=== PATIENT | male | born 1955 | race Caucasian/White ===

== ENCOUNTER → 2020-07-06 | Outpatient (CLI) | payer MEDICARE ==
[2020-07-07 01:19] LABS: Hemoglobin A1C 6.3 % (4.0-6.0)
[2020-07-07 04:52] LABS: C Reactive Protein <0.4 mg/dL (0.0-0.8); Creatine Kinase 81 U/L (35-257)
[2020-07-07 06:44] LABS: Protein, Total 6.6 g/dL (6.2-8.2)
[2020-07-07 13:27] LABS: Albumin 4.17 g/dL (3.80-4.90); Gamma Globulin 0.84 g/dL (0.70-1.50)
== END | disposition home or self-care (01) ==
LOC: LABWHC1 14:40
PROVIDERS: ATTEND Psychiatry & Neurology Neurology
DX: G62.9 Polyneuropathy, unspecified (principal); R26.81 Unsteadiness on feet; G25.0 Essential tremor; I10 Essential (primary) hypertension; G60.9 Hereditary and idiopathic neuropathy, unspecified
CPT/HCPCS: 36415; 82550; 82607; 82747; 83036; 84165; 84439; 84443; 85652; 86038; 86140; 86618

== ENCOUNTER 2020-11-28 09:25 | Emergency (ER) | payer MEDICARE ==
[2020-11-28 09:31] VITALS: PULSE 59; RESP 18
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
[2020-11-28 10:04] LABS: Basophils # (A) 0.1 k/uL (0-0.2); Basophils % (A) 0 %; Eosinophils # (A) 0.2 k/uL (0-0.7); Eosinophils % (A) 2 %; HCT 42.7 % (39.0-53.0); HGB 14.5 gm/dL (13.0-17.5); Lymphocytes # (A) 1.4 k/uL (1.0-4.8); Lymphocytes % (A) 11 %; MCV 94.2 fL (80.0-100.0); Mean Platelet Volume 7.6; Monocytes % (A) 8 %; Neutrophils # (A) 9.9 k/uL (1.3-7.7); Neutrophils % (A) 78 %; Platelet Count 271 k/uL (150-450); RBC 4.53 m/uL (4.30-5.90); RDW 12.3 % (11.5-15.5); WBC 12.7 k/uL (3.8-10.6)
--- NOTE | 2020-11-28 10:21 | XR ---
EXAMINATION TYPE: XR knee complete RT DATE OF EXAM: 11/28/2020 CLINICAL HISTORY: Pain swelling and fever after recent injury. TECHNIQUE: Three views of the right knee are obtained. COMPARISON: None. FINDINGS: There is no acute fracture/dislocation evident in right knee. Mild narrowing medial tibiof emoral compartment. Mild to moderate narrowing patellofemoral compartment The overlying soft tissue appears unremarkable. IMPRESSION: There is no acute fracture or dislocation in the right knee.
[2020-11-28 10:23] LABS: African American GFR (CKD) >90 (>60 ml/min/1.73 sqM); Anion Gap 9 mmol/L; Blood Urea Nitrogen 19 mg/dL (9-20); Calcium 9.1 mg/dL (8.4-10.2); Carbon Dioxide 25 mmol/L (22-30); Chloride 102 mmol/L (98-107); Glucose 125 mg/dL (74-99); Non-African American GFR(CKD) >90 (>60 ml/min/1.73 sqM); Potassium 4.5 mmol/L (3.5-5.1); Sodium 136 mmol/L (137-145)
[2020-11-28 10:53] VITALS: TEMP 98.5
[2020-11-28] MEDS ORDERED: LIDOCAINE 1% INJ 10MG/ML (20 ML MDV) SQ ONE (11:45)
[2020-11-28] MEDS ORDERED: VANCOMYCIN IV PER PHARMACY 1 EACH MISC MISCELLANE PRN (13:07)
[2020-11-28 13:41] VITALS: BP 128/85
[2020-11-28] MEDS ORDERED: VANCOMYCIN 1,750 MG in SODIUM CHLORIDE 0.9% 500 ML 500 ML IVPB ONE (14:00)
[2020-11-28 20:58] LABS: Glucose, BF Source Body Fluid; Glucose, Body Fluid 55 mg/dL
== END 2020-11-28 14:50 | disposition home or self-care (01) ==
LOC: EC 09:25
DX: S83.91XA Sprain of unspecified site of right knee, initial encounter (principal); I10 Essential (primary) hypertension; F12.90 Cannabis use, unspecified, uncomplicated; Z79.899 Other long term (current) drug therapy; Z88.0 Allergy status to penicillin; W23.1XXA Caught, crushed, jammed, or pinched between stationary objects, initial encounter; Y93.H2 Activity, gardening and landscaping
CPT/HCPCS: 36415; 89060; 80048; 83605; 85025; 86140; 87040; 87070; 87205; 87077; 87186; 82945; 73562; 99284; 20610; L1830 ×2; J2001

== ENCOUNTER 2020-11-29 09:44 | Inpatient (IN) | payer MEDICARE ==
[2020-11-29] MEDS ORDERED: SODIUM CHLORIDE 0.9% 500 ML 500 ML IV STA (09:54)
[2020-11-29] MEDS ORDERED: SODIUM CHLORIDE 0.9% 1,000 ML IV STA (09:54)
[2020-11-29] MEDS ORDERED: VANCOMYCIN IV PER PHARMACY 1 EACH MISC MISCELLANE PRN (09:55)
[2020-11-29] MEDS ORDERED: IBUPROFEN 400 MG TAB PO PRN (10:30)
[2020-11-29] MEDS ORDERED: ACETAMINOPHEN TAB 325 MG TAB PO PRN (10:30)
[2020-11-29] MEDS ORDERED: NALOXONE 0.4 MG/ML 1 ML VIAL IV PRN (10:30)
[2020-11-29] MEDS ORDERED: HYDROmorphone 0.5 MG/0.5 ML SYRINGE IVP STA (10:30)
[2020-11-29] MEDS ORDERED: VANCOMYCIN 1,750 MG in SODIUM CHLORIDE 0.9% 500 ML 500 ML IVPB ONE (10:30)
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
[2020-11-29 10:58] LABS: Basophils % (A) 0 %; Eosinophils # (A) 0.1 k/uL (0-0.7); Eosinophils % (A) 1 %; HCT 44.5 % (39.0-53.0); HGB 14.6 gm/dL (13.0-17.5); Lymphocytes # (A) 1.1 k/uL (1.0-4.8); Lymphocytes % (A) 9 %; MCH 31.2 pg (25.0-35.0); MCHC 32.7 g/dL (31.0-37.0); MCV 95.2 fL (80.0-100.0); Mean Platelet Volume 8.5; Monocytes % (A) 8 %; Neutrophils # (A) 9.9 k/uL (1.3-7.7); Neutrophils % (A) 80 %; Platelet Count 271 k/uL (150-450); RBC 4.68 m/uL (4.30-5.90); RDW 12.3 % (11.5-15.5); WBC 12.4 k/uL (3.8-10.6)
[2020-11-29 11:06] LABS: Appearance,Urine Cloudy (Clear); Bacteria,Urine Rare /hpf; Bilirubin,Urine 1+ (Negative); Blood,Urine Negative (Negative); Color,Urine Yellow; Glucose,Urine (UA) Negative (Negative); Ketones,Urine 2+ (Negative); Leukocyte Esterase,Urine Negative (Negative); Mucus,Urine Many /hpf; Nitrite,Urine Negative (Negative); PH, Urine 5.5 (5.0-8.0); Protein,Urine 1+ (Negative); Specific Gravity,Urine 1.037 (1.001-1.035); WBC,Urine 2 /hpf (0-5)
[2020-11-29 11:10] LABS: ALT 16 U/L (4-49); AST 21 U/L (17-59); African American GFR (CKD) >90 (>60 ml/min/1.73 sqM); Albumin 4.1 g/dL (3.5-5.0); Alkaline Phosphatase 75 U/L (38-126); Anion Gap 11 mmol/L; Blood Urea Nitrogen 24 mg/dL (9-20); Calcium 9.3 mg/dL (8.4-10.2); Carbon Dioxide 23 mmol/L (22-30); Chloride 102 mmol/L (98-107); Glucose 129 mg/dL (74-99); Non-African American GFR(CKD) >90 (>60 ml/min/1.73 sqM); Potassium 4.7 mmol/L (3.5-5.1); Sodium 136 mmol/L (137-145); Total Bilirubin 0.5 mg/dL (0.2-1.3); Total Protein 6.7 g/dL (6.3-8.2)
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
[2020-11-29 13:36] LABS: Prothrombin Time 10.4 sec (9.0-12.0)
[2020-11-29 13:48] LABS: Partial Thromboplastin Time 21.4 sec (22.0-30.0)
--- NOTE | 2020-11-29 16:31 | MR ---
EXAMINATION TYPE: MR knee RT wo con DATE OF EXAM: 11/29/2020 COMPARISON: Plain film 11/28/2020 HISTORY: Right knee pain and swelling for a few days. TECHNIQUE: Multiplanar, multisequence imaging of the right knee is performed without IV contrast. FINDINGS: MEDIAL MENISCUS: Posterior horn the medial meniscus shows linear increased signal extending to the un dersurface, coronal image #23. LATERAL MENISCUS: Anterior and posterior horns are intact without tear. CRUCIATE LIGAMENTS: The anterior and posterior cruciate ligaments are intact and unremarkable. COLLATERAL LIGAMENTS: The medial collateral ligament and lateral collateral ligament complex are inta ct and unremarkable. EXTENSOR MECHANISM: Visualized quadriceps and patellar tendons are intact. EFFUSION: Interval joint effusion is present POPLITEAL CYST: No popliteal/small cyst. TRICOMPARTMENT SPACES: CARTILAGE: Maintained BONE MARROW SIGNAL: No focal abnormal marrow signal is appreciated. OTHER: There are edema channels within the subcutaneous soft tissues and extending along the muscula r fascia in the lower aspect of the thigh. Crescentic fluid present within the prepatellar bursa with bursal thickening is noted IMPRESSION: Correlate for patellar bursitis, cellulitis, edema. There is a tear of the posterior horn the medial meniscus
[2020-11-29] MEDS: HYDROmorphone 0.5 MG/0.5 ML SYRINGE IVP PRN (17:41)
[2020-11-29] MEDS ORDERED: ONDANSETRON 4 MG/2 ML VIAL IVP PRN (17:59)
[2020-11-29] MEDS: SODIUM CHLORIDE 0.9% 1,000 ML IV SCH (18:10)
[2020-11-29] MEDS: ALPRAZolam 1 MG TAB PO SCH (20:20)
[2020-11-29] MEDS: PROPRANOLOL LA 60 MG CAP.SA.24H PO SCH (20:20)
[2020-11-29] MEDS: VANCOMYCIN 1,750 MG in SODIUM CHLORIDE 0.9% 500 ML 500 ML IVPB SCH (20:21)
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
[2020-11-29] MEDS: NAPROXEN 250 MG TAB PO SCH (23:05)
[2020-11-29] MEDS: FAMOTIDINE 20 MG TAB PO SCH (23:07)
[2020-11-29] MEDS: ENOXAPARIN 40 MG/0.4 ML SYRINGE SQ SCH (23:07)
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
[2020-11-30] MEDS: VANCOMYCIN 1,750 MG in SODIUM CHLORIDE 0.9% 500 ML 500 ML IVPB SCH (02:38)
[2020-11-30] MEDS: HYDROmorphone 0.5 MG/0.5 ML SYRINGE IVP PRN (02:42)
--- NOTE | 2020-11-30 08:14 | P.PN ---
Subjective Progress Note Date: 11/30/20 Principal diagnosis: This is a 65-year-old male who is admitted with right knee pain and swelling to rule out septic arthritis vs traumatic etiology. Patient states that about 1 we ek ago he got his boot stuck in the mud and felt a pop in the right knee. Patient states that since this occurred he has been unable to bear weight on the right lower extremity without pain. Patient states that he has been mostly resting at home. Patient reports pain, swelling and redness in the right leg. Patient states that 2 days ago he had a fever and last night noticed chills. Patient was evaluated in the emergency room on 11/28/2020 and his knee was aspirated revealing a small amount of blood. Today, patient presented as an outpatient at [facility] for reevaluation. Patient states that last night he was not feeling well and did have an episode on emesis. The right knee was again aspirated in the office and no fluid was obtained. Patient reports a past medical history significant for tremors and hypertension. Patient denies any cough, shortness of breath, numbness, weakness or tingling. 11/30/2020: The patient is much improved today. MRI did show a posterior medial torn meniscus which may be chronic. There is also anterior knee edema and findings consistent with prepatellar bursitis. 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 He states his pain is improved today. He is afebrile. Objective - Vital Signs Vital signs: Vital Signs Temp 97.5 F L 11/30/20 04:55 Pulse 52 L 11/30/20 05:26 Resp 16 11/30/20 04:55 BP 133/77 11/30/20 04:55 Pulse Ox 95 11/30/20 04:55 Intake & Output 11/29/20 11/30/20 11/30/20 18:59 06:59 18:59 Intake Total 130 2000 Output Total 260 Balance 130 1740 Weight 99.79 kg Intake: Intake, IV Titration 130 1600 Amount Sodium Chloride 0.9% 1, 130 000 ml @ 130 mls/hr IV . Q7H42M [facility] Rx#:[id number] Sodium Chloride 0.9% 1, 600 000 ml @ 50 mls/hr IV . Q20H [facility] Rx#:[id number] Vancomycin 1,750 mg In 500 Sodium Chloride 0.9% 500 ml 500 ml @ 167 mls/hr IVPB ONCE ONE Rx#: [id number] Vancomycin 1,750 mg In 500 Sodium Chloride 0.9% 500 ml 500 ml @ 167 mls/hr IVPB Q8H [facility] Rx#: [id number] Oral 400 Output: Urine 260 Other: Voiding Method Urinal # Voids 3 - Exam Exam of the right knee reveals a very small area of erythema in the prepatellar bursal region. His swelling is significantly improved. He has full range of motion of the knee without pain or difficulty. He can straight leg raise without difficulty. He has full foot and ankle motion without difficulty or pain. Neurovascular status to the lower extremity is intact. - Labs CBC & Chem 7: 11/29/20 10:36 11/29/20 10:36 Labs: Abnormal Lab Results - Last 24 Hours (Table) 11/29/20 11/29/20 11/29/20 Range/Units 10:36 10:36 10:36 WBC 12.4 H (3.8-10.6) k/uL Neutrophils # 9.9 H (1.3-7.7) k/uL APTT (22.0-30.0) sec Sodium 136 L (137-145) mmol/L BUN 24 H (9-20) mg/dL Creatinine 0.61 L (0.66-1.25) mg/dL Glucose 129 H (74-99) mg/dL Ur Specific [place] 1.037 H (1.001-1.035) Urine Protein 1+ H (Negative) Urine Ketones 2+ H (Negative) Urine Bilirubin 1+ H (Negative) Urine Bacteria Rare H (None) /hpf Urine Mucus Many H (None) /hpf 11/29/20 Range/Units 13:00 WBC (3.8-10.6) k/uL Neutrophils # (1.3-7.7) k/uL APTT 21.4 L (22.0-30.0) sec Sodium (137-145) mmol/L BUN (9-20) mg/dL Creatinine (0.66-1.25) mg/dL Glucose (74-99) mg/dL Ur Specific [place] (1.001-1.035) Urine Protein (Negative) Urine Ketones (Negative) Urine Bilirubin (Negative) Urine Bacteria (None) /hpf Urine Mucus (None) /hpf Assessment and Plan (1) Patellar bursitis of right knee Current Visit: Yes Status: Acute Code(s): M70.51 - OTHER BURSITIS OF KNEE, RIGHT KNEE SNOMED Code(s): 8757613264182408 (2) History of torn meniscus of right knee Current Visit: Yes Status: Acute Code(s): Z87.828 - PERSONAL HISTORY OF OTH (HEALED) PHYSICAL INJURY AND TRAUMA SNOMED Code(s): 320527148 (3) Right knee pain Current Visit: Yes Status: Acute Code(s): M25.561 - PAIN IN RIGHT KNEE SNOMED Code(s): 2363981891 Plan: The clinical and MRI findings are discussed with the patient. There is no indication for surgical intervention at this time. He is cleared for discharge to home from an orthopedic standpoint. I do recommend that he go home on oral antibiotics per infectious disease. He is to follow-up with Dr. Earl Dyer in one week. I recommend that he use the knee immobilizer that he has at home until follow-up next week.
[2020-11-30] MEDS ORDERED: VANCOMYCIN TROUGH DUE 1 EACH MISC MISCELLANE ONE (09:00)
[2020-11-30 09:03] LABS: African American GFR (CKD) >90 (>60 ml/min/1.73 sqM); Non-African American GFR(CKD) >90 (>60 ml/min/1.73 sqM)
[2020-11-30] MEDS: FAMOTIDINE 20 MG TAB PO SCH ×2 (10:25→20:31)
[2020-11-30] MEDS: NAPROXEN 250 MG TAB PO SCH ×3 (10:54→20:32)
[2020-11-30] MEDS: VANCOMYCIN 1,500 MG in SODIUM CHLORIDE 0.9% 250 ML IVPB SCH ×2 (11:24→19:15)
[2020-11-30] MEDS: PROPRANOLOL LA 60 MG CAP.SA.24H PO SCH ×2 (12:09→20:33)
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
[2020-11-30 15:32] VITALS: BMI 29.0
[2020-11-30] MEDS: SODIUM CHLORIDE 0.9% 1,000 ML IV SCH (19:08)
[2020-11-30] MEDS: ENOXAPARIN 40 MG/0.4 ML SYRINGE SQ SCH (20:31)
[2020-11-30] MEDS: ALPRAZolam 1 MG TAB PO SCH (20:31)
--- NOTE | 2020-11-30 22:48 | P.PN ---
Progress Note - Text Progress Note Date: 11/30/20 Chief Complaint: Right knee pain History of presenting complaint: This is a pleasant 65-year-old patient, was chronic stable medical conditions include GERD, hypertension, peripheral neuropathy, history to tremors. Patient lives alone. Sometimes uses a cane. About a week ago he was putting in chemical and upon completing his bruits. She was in the mouth. She slipped and upon. He was trying to get out and when he is putting his leg he felt a pop in his knee. That night the pain became severe in the knee with increasing swelling. He had a fever of [address] Munson, ER physician spoke to [facility] and a thoracentesis was performed. It was a bloody drainage. Patient was discharged on knee immobilizer pending results. Patient returns to the ER with increasing pain in the right knee. [facility]. The knee was again aspirated and [facility]. No fluid was obtained. Patient is started on vancomycin and ceftriaxone in the ER. MRA of the right knee showed subcutaneous fluid extending along the muscle proximally and distally. Meniscal tear. Today: On IV antibiotics. Some decrease in pain swelling of the right knee. Oral intake fair. Review of systems: Was done for constitutional, cardiovascular, GI, pulmonary. relevant finding as above Active Medications Acetaminophen (Acetaminophen Tab 325 Mg Tab) 650 mg PO Q6HR PRN PRN Reason: Mild Pain or Fever > 100.5 Last Admin: 11/30/20 01:17 Dose: 650 mg Documented by: Alprazolam (Alprazolam 1 Mg Tab) 1 mg PO HS [facility] Last Admin: 11/30/20 20:31 Dose: 1 mg Documented by: Enoxaparin Sodium (Enoxaparin 40 Mg/0.4 Ml Syringe) 40 mg SQ DAILY@2100 [facility] Last Admin: 11/30/20 20:31 Dose: 40 mg Documented by: Famotidine (Famotidine 20 Mg Tab) 20 mg PO BID [facility] Last Admin: 11/30/20 20:31 Dose: 20 mg Documented by: Hydromorphone HCl (Hydromorphone 0.5 Mg/0.5 Ml Syringe) 0.5 mg IVP Q3HR PRN PRN Reason: Moderate Pain Last Admin: 11/30/20 02:42 Dose: 0.5 mg Documented by: Ceftriaxone Sodium 2 gm/ (Sodium Chloride) 50 mls @ 100 mls/hr IVPB Q24HR [facility] Last Admin: 11/30/20 10:25 Dose: 100 mls/hr Documented by: Sodium Chloride (Saline 0.9%) 1,000 mls @ 50 mls/hr IV .Q20H [facility] Last Admin: 11/30/20 19:08 Dose: 50 mls/hr Documented by: Vancomycin HCl 1,500 mg/ (Sodium Chloride) 250 mls @ 125 mls/hr IVPB Q8H [facility] Last Admin: 11/30/20 19:15 Dose: 125 mls/hr Documented by: Naloxone HCl (Naloxone 0.4 Mg/Ml 1 Ml Vial) 0.2 mg IV Q2M PRN PRN Reason: Opioid Reversal Naproxen (Naproxen 250 Mg Tab) 250 mg PO TID [facility] Last Admin: 11/30/20 20:32 Dose: 250 mg Documented by: Ondansetron HCl (Ondansetron 4 Mg/2 Ml Vial) 4 mg IVP Q8H PRN PRN Reason: Nausea And Vomiting Propranolol HCl (Propranolol La 60 Mg Cap.Sa.24h) 120 mg PO BID [facility] Last Admin: 11/30/20 20:33 Dose: 120 mg Documented by: Past medical history to include: GERD, hypertension, peripheral neuropathy, hereditary tremors, gastric ulcer Social history: Lives alone. Does use a cane. Smoked for 36 years stopped about 2 days ago. Marijuana occasionally. Has about 10 drinks a weak. Physical examination: VITAL SIGNS: 97.8, 57, 18, 116/67, 96 with room air GENERAL: BMI 29, laying in bed, awake. EYES: Pupils equal. Conjunctiva normal. HEENT: External appearance of nose and ears normal, oral cavity grossly normal. NECK: JVD not raised; masses not palpable. HEART: First and second heart sounds are normal; no edema. LUNGS: Respiratory rate normal; clear to auscultation. ABDOMEN: Soft, nontender, liver spleen not palpable, no masses palpable. MUSCULAR skeletal: Swelling around the right knee is some local tenderness is increased local temperature. -Some improvement PSYCH: Alert and oriented x3; mood and affect normal. INVESTIGATIONS, reviewed in the clinical context: WBC 12.4 hemoglobin 14.6 platelets 271 potassium 4.7 bun 24 creatinine 0.61 Fluid aspiration from the right knee-glucose 55. Stools negative. Cell count could not be done because of coagulation. Coronavirus [PCR]-not detected MRI of the knee: Edema channels within the subcutaneous soft tissue and extending along the muscular fascia in the lower aspect of the thigh. Crescentic fluid present within the prepatellar bursa with bursal thickening is noted. Getting the posterior horn of the medial meniscus Assessment and plan: -Acute swelling in the right knee with pain and tenderness when the patient felt a pop when he started up on his boot off his leg. This seems to have precipitated up tear of the posterior horn medial meniscus. Leading to bleeding in and around the joint./Hemarthrosis. This was aspirated in the ER yesterday. Patient's had no obvious fever. Maximum being 100. A second aspiration and [facility] office today did not reveal any fluid. Add naproxen. Continue antibiotics -GERD Tums when necessary -Essential hypertension Propranolol -Peripheral neuropathy in the feet Follow symptomatically -Familial tremors Continue propranolol Discussed with ID. Continue antibiotics. Care was discussed with the patient. Further course depending on culture results.
[2020-12-01] MEDS: HYDROmorphone 0.5 MG/0.5 ML SYRINGE IVP PRN (03:01)
[2020-12-01] MEDS: VANCOMYCIN 1,500 MG in SODIUM CHLORIDE 0.9% 250 ML IVPB SCH ×3 (03:06→19:30)
[2020-12-01] MEDS: NAPROXEN 250 MG TAB PO SCH ×3 (07:54→20:54)
[2020-12-01] MEDS: FAMOTIDINE 20 MG TAB PO SCH ×2 (07:54→20:54)
[2020-12-01] MEDS: PROPRANOLOL LA 60 MG CAP.SA.24H PO SCH ×2 (07:54→20:54)
--- NOTE | 2020-12-01 15:02 | PN ---
PROGRESS NOTE DATE OF SERVICE: 12/01/2020 REASON FOR FOLLOWUP: Right knee pain, hemarthrosis and a question of bursitis. INTERVAL HISTORY: The patient is currently afebrile. The patient is feeling much better. The patient's pain is currently controlled. Denies having any chest pain or shortness of breath or cough. No abdominal pain or diarrhea. PHYSICAL EXAMINATION: Blood pressure 143/86, pulse of 53, temperature 97.7. He 98% on room air. General description is an elderly male lying in bed in no distress. RESPIRATORY SYSTEM: Unlabored breathing, clear to auscultation anteriorly. HEART: S1, S2. Regular rate and rhythm. ABDOMEN: Soft, no tenderness. LABS: DIAGNOSTIC IMPRESSION AND PLAN: Patient with right knee septic arthritis. Culture now showing a Staph aureus. Will discuss with Ortho for washout of the knee. The patient will need IV antibiotic on discharge. We will discuss with the admitting physician. YULY / BARRYN: [id number] /
[2020-12-01] MEDS: SODIUM CHLORIDE 0.9% 1,000 ML IV SCH (15:47)
--- NOTE | 2020-12-01 18:08 | P.PN ---
Progress Note - Text Progress Note Date: 12/01/20 Chief Complaint: Right knee pain History of presenting complaint: This is a pleasant 65-year-old patient, was chronic stable medical conditions include GERD, hypertension, peripheral neuropathy, history to tremors. Patient lives alone. Sometimes uses a cane. About a week ago he was putting in chemical and upon completing his bruits. She was in the mouth. She slipped and upon. He was trying to get out and when he is putting his leg he felt a pop in his knee. That night the pain became severe in the knee with increasing swelling. He had a fever of [address] Munson, ER physician spoke to [facility] for [facility] and a thoracentesis was performed. It was a bloody drainage. Patient was discharged on knee immobilizer pending results. Patient returns to the ER with increasing pain in the right knee. He was sent in from [facility]. The knee was again aspirated and [facility]. No fluid was obtained. Patient is started on vancomycin and ceftriaxone in the ER. MRI of the right knee showed subcutaneous fluid extending along the muscle proximally and distally. Meniscal tear. Today: Continue with IV antibiotics. Preliminary cultures are showing staph aureus. Pain is swelling is better. Oral intake good. Patient keen to go home. Review of systems: Was done for constitutional, cardiovascular, GI, pulmonary. relevant finding as above Active Medications Acetaminophen (Acetaminophen Tab 325 Mg Tab) 650 mg PO Q6HR PRN PRN Reason: Mild Pain or Fever > 100.5 Last Admin: 11/30/20 01:17 Dose: 650 mg Documented by: Alprazolam (Alprazolam 1 Mg Tab) 1 mg PO HS [facility] Last Admin: 11/30/20 20:31 Dose: 1 mg Documented by: Enoxaparin Sodium (Enoxaparin 40 Mg/0.4 Ml Syringe) 40 mg SQ DAILY@2100 [facility] Last Admin: 11/30/20 20:31 Dose: 40 mg Documented by: Famotidine (Famotidine 20 Mg Tab) 20 mg PO BID [facility] Last Admin: 12/01/20 07:54 Dose: 20 mg Documented by: Hydromorphone HCl (Hydromorphone 0.5 Mg/0.5 Ml Syringe) 0.5 mg IVP Q3HR PRN PRN Reason: Moderate Pain Last Admin: 12/01/20 03:01 Dose: 0.5 mg Documented by: Ceftriaxone Sodium 2 gm/ (Sodium Chloride) 50 mls @ 100 mls/hr IVPB Q24HR [facility] Last Admin: 12/01/20 07:54 Dose: 100 mls/hr Documented by: Sodium Chloride (Saline 0.9%) 1,000 mls @ 50 mls/hr IV .Q20H [facility] Last Admin: 12/01/20 15:47 Dose: 50 mls/hr Documented by: Vancomycin HCl 1,500 mg/ (Sodium Chloride) 250 mls @ 125 mls/hr IVPB Q8H [facility] Last Admin: 12/01/20 12:19 Dose: 125 mls/hr Documented by: Naloxone HCl (Naloxone 0.4 Mg/Ml 1 Ml Vial) 0.2 mg IV Q2M PRN PRN Reason: Opioid Reversal Naproxen (Naproxen 250 Mg Tab) 250 mg PO TID [facility] Last Admin: 12/01/20 15:46 Dose: 250 mg Documented by: Ondansetron HCl (Ondansetron 4 Mg/2 Ml Vial) 4 mg IVP Q8H PRN PRN Reason: Nausea And Vomiting Propranolol HCl (Propranolol La 60 Mg Cap.Sa.24h) 120 mg PO BID [facility] Last Admin: 12/01/20 07:54 Dose: 120 mg Documented by: Past medical history to include: GERD, hypertension, peripheral neuropathy, hereditary tremors, gastric ulcer Social history: Lives alone. Does use a cane. Smoked for 36 years stopped about 2 days ago. Marijuana occasionally. Has about 10 drinks a weak. Physical examination: VITAL SIGNS: 97.3, 55, 16, 1 23 x 77, 97% room air GENERAL: Laying in bed, comfortable EYES: Pupils equal. Conjunctiva normal. HEENT: External appearance of nose and ears normal, oral cavity grossly normal. NECK: JVD not raised; masses not palpable. HEART: First and second heart sounds are normal; no edema. LUNGS: Respiratory rate normal; clear to auscultation. ABDOMEN: Soft, nontender, liver spleen not palpable, no masses palpable. MUSCULAR skeletal: Swelling around the right knee is some local tenderness is increased local temperature. -Significantly improved PSYCH: Alert and oriented x3; mood and affect normal. INVESTIGATIONS, reviewed in the clinical context: Pro-calcitonin 0.06 Son no real fluid culture from May 24: Presumptive staph aureus WBC 12.4 hemoglobin 14.6 platelets 271 potassium 4.7 bun 24 creatinine 0.61 Fluid aspiration from the right knee-glucose 55. Stools negative. Cell count could not be done because of coagulation. Coronavirus [PCR]-not detected MRI of the knee: Edema channels within the subcutaneous soft tissue and extending along the muscular fascia in the lower aspect of the thigh. Crescentic fluid present within the prepatellar bursa with bursal thickening is noted. Getting the posterior horn of the medial meniscus Assessment and plan: -Acute swelling in the right knee with pain and tenderness when the patient felt a pop when he started up on his boot off his leg. Cultures from November 28 showing presumptive staph aureus. Continue with IV ceftriaxone and IV vancomycin. Continue naproxen -GERD Tums when necessary -Essential hypertension Propranolol -Peripheral neuropathy in the feet Follow symptomatically -Familial tremors Continue propranolol Discussed with Dr. Burden him ID. Continue with current antibiotics until cultures are finalized. Patient is very anxious to go. Did discuss the importance of awaiting the culture results. He understands.
[2020-12-01] MEDS: ALPRAZolam 1 MG TAB PO SCH (20:54)
[2020-12-01] MEDS: ENOXAPARIN 40 MG/0.4 ML SYRINGE SQ SCH (20:54)
[2020-12-02] MEDS: HYDROmorphone 0.5 MG/0.5 ML SYRINGE IVP PRN ×2 (00:31→21:53)
[2020-12-02] MEDS: VANCOMYCIN 1,500 MG in SODIUM CHLORIDE 0.9% 250 ML IVPB SCH ×3 (02:57→14:49)
[2020-12-02] MEDS: SODIUM CHLORIDE 0.9% 1,000 ML IV SCH ×2 (05:34→17:26)
[2020-12-02] MEDS: FAMOTIDINE 20 MG TAB PO SCH ×2 (07:24→21:12)
[2020-12-02] MEDS: NAPROXEN 250 MG TAB PO SCH ×3 (07:24→21:11)
[2020-12-02] MEDS: PROPRANOLOL LA 60 MG CAP.SA.24H PO SCH ×2 (07:27→21:12)
[2020-12-02 10:29] LABS: African American GFR (CKD) >90 (>60 ml/min/1.73 sqM); Non-African American GFR(CKD) >90 (>60 ml/min/1.73 sqM)
--- NOTE | 2020-12-02 12:04 | P.PN ---
Subjective Progress Note Date: 12/02/20 This is a 65-year-old male who is admitted for septic arthritis of the right knee. Patient is seen and evaluated at bedside today. Patient states that he still has pain with weightbearing and also with flexion of the right knee. Patient denies any new complaints today. Objective - Vital Signs Vital signs: Vital Signs Temp 97.6 F 12/02/20 05:00 Pulse 51 L 12/02/20 05:00 Resp 16 12/02/20 05:00 BP 122/76 12/02/20 05:00 Pulse Ox 96 12/02/20 05:00 Intake & Output 12/01/20 12/02/20 12/02/20 18:59 06:59 18:59 Intake Total 800 Balance 800 Intake: Intake, IV Titration 800 Amount Sodium Chloride 0.9% 1, 500 000 ml @ 50 mls/hr IV . Q20H [facility]RE[facility] Rx#:[id number] Vancomycin 1,500 mg In 250 Sodium Chloride 0.9% 250 ml @ 125 mls/hr IVPB Q8H [facility] Rx#:[id number] cefTRIAXone 2 gm In 50 Sodium Chloride 0.9% 50 ml @ 100 mls/hr IVPB Q24HR [facility] Rx#:[id number] Other: Voiding Method Urinal # Voids 4 - Exam On exam patient is resting comfortably in bed no acute distress. Patient is alert and oriented 3. Patient has full range of motion of the right knee. Fl exion of the right knee is painful. There is mild swelling of the prepatellar bursa. Erythema is improving. Calf is soft and nontender to palpation. Sensation intact. Neurovascular status and circulatory status are intact. - Labs CBC & Chem 7: 11/29/20 10:36 12/02/20 09:44 Labs: Abnormal Lab Results - Last 24 Hours (Table) 12/02/20 Range/Units 09:44 Creatinine 0.61 L (0.66-1.25) mg/dL Microbiology - Last 24 Hours (Table) 11/29/20 10:36 Blood Culture - Preliminary Blood No Growth after 48 hours Assessment and Plan (1) Right knee pain Current Visit: Yes Status: Acute Code(s): M25.561 - PAIN IN RIGHT KNEE SNOMED Code(s): 8432051446 (2) Knee effusion Current Visit: Yes Status: Acute Code(s): M25.469 - EFFUSION, UNSPECIFIED KNEE SNOMED Code(s): 617733292 (3) Septic arthritis Current Visit: Yes Status: Acute Code(s): M00.9 - PYOGENIC ARTHRITIS, UNSPECIFIED SNOMED Code(s): 734331467 Plan: 1.Cultures are positive for staph aureus. 2. Patient is NPO. 3. IV antibiotics per infectious disease. 4. Patient continues to have pain with range of motion and with weightbearing. Planning for arthroscopy of the right knee later today pending patient consent. The surgical procedure is discussed at bedside today and all questions are answered to the best of my ability.
[2020-12-02] MEDS ORDERED: HYDROcodone/APAP 7.5-325MG 1 EACH TAB PO PRN (12:05)
[2020-12-02] MEDS ORDERED: IV FLUID CONTINUATION 1,000 ML IV ONE (13:02)
[2020-12-02] MEDS: LACTATED RINGERS 1,000 ML IV SCH (14:05)
[2020-12-02] MEDS ORDERED: GLYCOPYRROLATE 0.2 MG/ML 2 ML VIAL ONE (14:45)
[2020-12-02] MEDS ORDERED: fentaNYL (PF) 50 MCG/ML 2 ML AMP ONE (14:45)
[2020-12-02] MEDS ORDERED: PROPOFOL 10 MG/ML 20 ML VIAL IV ONE (14:45)
[2020-12-02] MEDS ORDERED: LIDOCAINE 1% INJ 10MG/ML (20 ML MDV) ONE (14:45)
--- NOTE | 2020-12-02 15:33 | PN ---
PROGRESS NOTE DATE OF SERVICE: 12/02/2020 REASON FOR FOLLOWUP: Right knee septic arthritis/bursitis. INTERVAL HISTORY: The patient is currently afebrile. The patient is feeling better. The patient's pain to the right knee has decreased intensity. Denies any chest pain. No shortness of breath, cough, abdominal pain. No diarrhea. PHYSICAL EXAMINATION: Blood pressure 159/85, pulse 78, temperature 97.6, he is 96% on room air. General description: The patient is an elderly male lying in bed in no distress. Respiratory system: Unlabored breathing, clear to auscultation anteriorly. Heart S1, S2. Regular rate and rhythm. Abdomen soft, no tenderness. Right knee swelling and redness has decreased. LABS: The knee aspirate has been finalized with MSSA. DIAGNOSTIC IMPRESSION AND PLAN: Patient with right knee septic arthritis, source of bursitis cultures with MSSA. Antibiotic adjusted to cefazolin 2 grams q.8 hours. Waiting for possible bursectomy versus knee washout this afternoon. Will need a short course of antibiotic on discharge. Continue supportive care. MMODL / IJN: [id number] /
--- NOTE | 2020-12-02 16:03 | P.OP ---
Date of Procedure: 12/02/20 Preoperative Diagnosis: Septic arthritis right knee Postoperative Diagnosis: 1. Septic arthritis right knee 2. Septic prepatellar bursa 3. Torn medial meniscus right knee 4. Grade 2 chondromalacia medial femoral condyle 5. Synovitis Procedure(s) Performed: 1. Arthroscopy of the right knee with irrigation and drainage of septic arthritis right knee 2. Partial medial meniscectomy right knee (20% of meniscus excised) 3. Chondroplasty medial femoral condyle 4. Partial synovectomy of the medial femoral, lateral femoral, patellofemoral compartments 5. Incision and drainage prepatellar bursa right knee Anesthesia: [facility] Surgeon: Earl Dyer Estimated Blood Loss (ml): 5 Pathology: other (Cultures 2 of the right knee) Condition: stable Disposition: PACU Indications for Procedure: This is a 65-year-old gentleman that presented to the hospital with pain and swelling in the right knee. She had a recent injury to the right knee but there was suspicion of possible septic arthritis of the knee. An aspiration was performed and that aspiration came back possible Staphylococcus aureus. An MRI was also performed which showed a torn medial meniscus of that right knee. After discussing the surgical nonsurgical treatment options with him at length, I recommended an arthroscopic incision and drainage of the knee as well as a partial medial meniscectomy and incision and drainage of the prepatellar bursa. Informed consent was obtained. Operative Findings: The operative findings show a torn medial meniscus of the right knee. There is very low evidence of a significant intra-articular infection of the right knee. The articular cartilage and surrounding tissues did not appear to be infected. The prepatellar bursa was opened and only a small amount of fluid was expressed. There is no purulent material in either the knee or the prepatellar bursa. Description of Procedure: Patient was seen and evaluated in the preoperative area, the operative site was marked with a skin marker. The patient was then brought to the operating room and given intravenous antibiotics preoperatively. A general anesthetic was administered by the anesthesia department. Tourniquet was placed on the right upper thigh and the left lower extremity was then prepped and draped in usual sterile fashion. A universal timeout was then performed confirming the patient's name, surgical site, ALLERGIES, and consent. The limb was then exsanguinated and tourniquet insufflated to 250 mmHg. the knee was then evaluated and found to have some slight swelling anteriorly but no blanca redness or warmth. Standard inferior medial and inferior lateral portals were established in the knee. The trochar was inserted in the inferolateral portal. Upon placement of the trocar, there was no fluid or purulent material encountered. The knee was cultured 2 at this point. Examination began at the patellofemoral joint. There was a moderate amount of synovitis, but no evidence of any significant chondromalacia.. Next the medial compartment was visualized. There was a tear of the posterior horn of the medial meniscus. There was grade 2 chondral malacia the mediofemoral compartment and synovitis. The notch area was then visualized and the ACL was intact. The Lateral compartment was then visualized and there was no tear of the lateral meniscus. There was no evidence of chondromalacia, but a mild amount of synovitis. Next, using an arthroscopic shaver and a biter, partial medial meniscectomy was performed stable margins. Approximately 20% of the meniscus was excised. A partial synovectomy is performed the medial femoral, lateral femoral, patellofemoral compartments. Chondroplasty was also performed of the medial femoral compartment of the knee. The trocar was then removed and a small incision was made over the prepatellar bursa. There is small amount of clear fluid expressed, but no gross purulence. A hemostat was used to extensively opened the prepatellar bursa to irrigated out. Thorough irrigation was then performed. Knee was then copiously irrigated, instruments removed, incisions were closed with 4-0 nylon. A sterile dressing was then applied, and the tourniquet was released. Patient was then transferred to recovery room in stable condition.condition.
--- NOTE | 2020-12-02 16:37 | P.PN ---
Progress Note - Text Progress Note Date: 12/02/20 Chief Complaint: Right knee pain History of presenting complaint: This is a pleasant 65-year-old patient, was chronic stable medical conditions include GERD, hypertension, peripheral neuropathy, history to tremors. Patient lives alone. Sometimes uses a cane. About a week ago he was putting in chemical and upon completing his bruits. She was in the mouth. She slipped and upon. He was trying to get out and when he is putting his leg he felt a pop in his knee. That night the pain became severe in the knee with increasing swelling. He had a fever of [address] Munson, ER physician spoke to Emmanuelle mazariegos for orthopedics and a thoracentesis was performed. It was a bloody drainage. Patient was discharged on knee immobilizer pending results. Patient returns to the ER with increasing pain in the right knee. [facility]. The knee was again aspirated and [facility]. No fluid was obtained. Patient is started on vancomycin and ceftriaxone in the ER. MRI of the right knee showed subcutaneous fluid extending along the muscle proximally and distally. Meniscal tear. Today: Patient's. synovial fluid cultures come back showing MSSA. Patient this afternoon is due to go down for a joint irrigation and washing. Patient's right knee was clinically doing better. Patient somewhat unhappy with the fact that he is to stay back for the same. Also discussed with Dr. Fischer from ID. Home IV antibiotics and being arranged. Patient again is unhappy about the same. Was reassured and explained to the patient importance of the same. Review of systems: Was done for constitutional, cardiovascular, GI, pulmonary. relevant finding as above Active Medications Acetaminophen (Acetaminophen Tab 325 Mg Tab) 650 mg PO Q6HR PRN PRN Reason: Mild Pain or Fever > 100.5 Last Admin: 11/30/20 01:17 Dose: 650 mg Documented by: Hydrocodone Bitart/Acetaminophen (Hydrocodone/Apap 7.5-325mg 1 Each Tab) 1 each PO QID PRN PRN Reason: Pain Scale 1 to 5 Hydrocodone Bitart/Acetaminophen (Hydrocodone/Apap 7.5-325mg 1 Each Tab) 2 each PO QID PRN PRN Reason: Pain Scale 6 to 7 Alprazolam (Alprazolam 1 Mg Tab) 1 mg PO HS TREY Last Admin: 12/01/20 20:54 Dose: 1 mg Documented by: Aspirin (Aspirin 325 Mg Tab) 325 mg PO BID [facility] Enoxaparin Sodium (Enoxaparin 40 Mg/0.4 Ml Syringe) 40 mg SQ DAILY@2100 [facility] Last Admin: 12/01/20 20:54 Dose: 40 mg Documented by: Famotidine (Famotidine 20 Mg Tab) 20 mg PO BID [facility] Last Admin: 12/02/20 07:24 Dose: Not Given Documented by: Hydromorphone HCl (Hydromorphone 0.5 Mg/0.5 Ml Syringe) 0.5 mg IVP Q3HR PRN PRN Reason: Moderate Pain Last Admin: 12/02/20 00:31 Dose: 0.5 mg Documented by: Sodium Chloride (Saline 0.9%) 1,000 mls @ 50 mls/hr IV .Q20H [facility] Last Admin: 12/02/20 05:34 Dose: 50 mls/hr Documented by: Lactated Ringer's (Lactated Ringers) 1,000 mls @ 65 mls/hr IV .[id number] [facility] Last Admin: 12/02/20 14:05 Dose: 500 mls Documented by: Cefazolin Sodium 2 gm/ Sodium (Chloride) 50 mls @ 100 mls/hr IVPB Q8HR [facility] Naloxone HCl (Naloxone 0.4 Mg/Ml 1 Ml Vial) 0.2 mg IV Q2M PRN PRN Reason: Opioid Reversal Naproxen (Naproxen 250 Mg Tab) 250 mg PO TID [facility] Last Admin: 12/02/20 07:24 Dose: Not Given Documented by: Ondansetron HCl (Ondansetron 4 Mg/2 Ml Vial) 4 mg IVP Q8H PRN PRN Reason: Nausea And Vomiting Propranolol HCl (Propranolol La 60 Mg Cap.Sa.24h) 120 mg PO BID [facility] Last Admin: 12/02/20 07:27 Dose: 120 mg Documented by: Past medical history to include: GERD, hypertension, peripheral neuropathy, hereditary tremors, gastric ulcer Social history: Lives alone. Does use a cane. Smoked for 36 years stopped about 2 days ago. Marijuana occasionally. Has about 10 drinks a weak. Physical examination: VITAL SIGNS: 97.6, 52, 16, 1 5985, 96% room air GENERAL: Laying in bed, comfortable EYES: Pupils equal. Conjunctiva normal. HEENT: External appearance of nose and ears normal, oral cavity grossly normal. NECK: JVD not raised; masses not palpable. HEART: First and second heart sounds are normal; no edema. LUNGS: Respiratory rate normal; clear to auscultation. ABDOMEN: Soft, nontender, liver spleen not palpable, no masses palpable. MUSCULAR skeletal: Swelling around the right knee is some local tenderness is increased local temperature. -Significantly improved PSYCH: Alert and oriented x3; mood and affect normal. INVESTIGATIONS, reviewed in the clinical context: November 24: Creatinine 0.61 Pro-calcitonin 0.06 Son no real fluid culture from November 28: Presumptive staph aureus WBC 12.4 hemoglobin 14.6 platelets 271 potassium 4.7 bun 24 creatinine 0.61 Fluid aspiration from the right knee-glucose 55. Stools negative. Cell count could not be done because of coagulation. Coronavirus [PCR]-not detected MRI of the knee: Edema channels within the subcutaneous soft tissue and extending along the muscular fascia in the lower aspect of the thigh. Crescentic fluid present within the prepatellar bursa with bursal thickening is noted. Getting the posterior horn of the medial meniscus Assessment and plan: -Acute septic arthritis of the right knee. Cultures growing MSSA Continue with IV ceftriaxone and IV vancomycin. Continue naproxen. Right knee IND today. -GERD Tums when necessary -Essential hypertension Propranolol -Peripheral neuropathy in the feet Follow symptomatically -Familial tremors Continue propranolol Discussed with Dr. Chiu from ID. For home IV antibiotics. Patient to go down for IND later today. Discussed at length with the patient. Total time spent today about 40 minutes with over 25 minutes of discussion.
[2020-12-02] MEDS: HYDROcodone/APAP 7.5-325MG 1 EACH TAB PO PRN (21:12)
[2020-12-02] MEDS: ALPRAZolam 1 MG TAB PO SCH (21:12)
[2020-12-02] MEDS: ENOXAPARIN 40 MG/0.4 ML SYRINGE SQ SCH (21:12)
[2020-12-02] MEDS: ASPIRIN 325 MG TAB PO SCH (21:12)
[2020-12-03] MEDS: LACTATED RINGERS 1,000 ML IV SCH ×2 (04:21→19:48)
[2020-12-03] MEDS: HYDROcodone/APAP 7.5-325MG 1 EACH TAB PO PRN ×2 (05:08→21:07)
[2020-12-03] MEDS: FAMOTIDINE 20 MG TAB PO SCH ×2 (09:04→21:07)
[2020-12-03] MEDS: ASPIRIN 325 MG TAB PO SCH ×2 (09:04→21:07)
[2020-12-03] MEDS: NAPROXEN 250 MG TAB PO SCH ×3 (09:05→21:06)
[2020-12-03] MEDS: PROPRANOLOL LA 60 MG CAP.SA.24H PO SCH ×2 (09:05→21:18)
--- NOTE | 2020-12-03 11:31 | P.PN ---
Subjective Progress Note Date: 12/03/20 Principal diagnosis: Septic arthritis right knee. Septic prepatellar bursitis right knee. Medial meniscal tear right knee. This is a 65-year-old male who is postop day #1 status post arthroscopic irrigation and debridement of the right knee with partial medial meniscectomy as well as I&D of the prepatellar bursa right knee. There was very little evidence of infection found intraoperatively. Cultures were taken intraoperatively. The patient is doing well today. He has no new complaints or concerns today. Vital signs and labs are stable. Operative Cultures are pending. Gram stain shows no organisms seen. Objective - Vital Signs Vital signs: Vital Signs Temp 97.4 F L 12/03/20 04:50 Pulse 63 12/03/20 04:50 Resp 16 12/03/20 04:50 BP 131/86 12/03/20 04:50 Pulse Ox 97 12/03/20 04:50 Intake & Output 12/02/20 12/03/20 12/03/20 18:59 06:59 18:59 Intake Total 900 1300 Output Total 5 Balance 895 1300 Intake: IV 900 Intake, IV Titration 700 Amount Sodium Chloride 0.9% 1, 600 000 ml @ 50 mls/hr IV . Q20H [facility] Rx#:[id number] ceFAZolin 2 gm In Sodium 100 Chloride 0.9% 50 ml @ 100 mls/hr IVPB Q8HR [facility] Rx# :[id number] Oral 600 Output: Estimated Blood Loss 5 Other: # Voids 3 2 - Exam Exam of the right knee reveals that his incisions look good. There is no erythema and no active drainage. There is minimal drainage on the dressings. Mild soft tissue swelling about the knee and lower leg. He has active straight leg raise and flexion to about 45 actively. He has full foot and ankle motion without difficulty or pain. Neurovascular status to the lower extremities intact. - Labs CBC & Chem 7: 11/29/20 10:36 12/02/20 09:44 Labs: Microbiology - Last 24 Hours (Table) 12/02/20 15:20 Gram Stain - Preliminary Knee - Right Wound Culture - Preliminary 12/02/20 15:20 Gram Stain - Preliminary Knee - Right Wound Culture - Preliminary 12/02/20 15:20 Anaerobic Culture - Preliminary Knee - Right 12/02/20 15:20 Anaerobic Culture - Preliminary Knee - Right 11/29/20 10:36 Blood Culture - Preliminary Blood No Growth after 72 hours Assessment and Plan (1) Patellar bursitis of right knee Current Visit: Yes Status: Acute Code(s): M70.51 - OTHER BURSITIS OF KNEE, RIGHT KNEE SNOMED Code(s): 2131532674490679 (2) History of torn meniscus of right knee Current Visit: Yes Status: Acute Code(s): Z87.828 - PERSONAL HISTORY OF OTH (HEALED) PHYSICAL INJURY AND TRAUMA SNOMED Code(s): 515729175 (3) Right knee pain Current Visit: Yes Status: Acute Code(s): M25.561 - PAIN IN RIGHT KNEE SNOMED Code(s): 2588724682 Plan: The clinical findings are discussed with the patient. His dressing is changed today. He may be discharged from an orthopedic standpoint. Antibiotics per infectious disease. He is to follow-up in our office in 1 week.
--- NOTE | 2020-12-03 18:33 | PN ---
PROGRESS NOTE DATE OF SERVICE: 12/03/2020 This 65-year-old gentleman who was admitted with acute septic arthritis, underwent arthroscopy of the right knee with irrigation and drainage of septic arthritis right knee by Dr. Dyer. The patient is being closely monitored at this time. No chest pain. No palpitations. No fever. PHYSICAL EXAMINATION: Alert and oriented x3. Pulse 55, blood pressure 130/70, respiration 18, temperature 98.1, pulse ox 94% on room air. HEENT: Conjunctivae normal. Oral mucosa moist. NECK: No jugular venous distention. No lymph node enlargement. CARDIOVASCULAR: S1, S2, muffled. No S3, no S4, RESPIRATORY: Diminished breath sounds at the bases. No rhonchi, no crackles. ABDOMEN: Soft, nontender. LEGS: Status post right knee surgery. NERVOUS SYSTEM: No focal deficits. LABS: WBC 12.4. Otherwise, creatinine noted. UA noted. The cultures pending. ASSESSMENT: 1. Acute right septic arthritis status post arthroscopy of the right knee with irrigation and drainage of septic arthritis of the right knee. 2. Status post incision and drainage of the prepatellar bursa of the right knee. 3. Gastroesophageal reflux disease. 4. Hypertension. 5. Peripheral neuropathy. 6. Familial tremors. 7. Hypertension. 8. FULL CODE. RECOMMENDATIONS AND DISCUSSION: In this 65-year-old gentleman who presented with multiple complex medical issues, we will monitor the patient closely, continue the current management, continue symptomatic treatment. Otherwise, DVT prophylaxis, incentive spirometry. Closely follow with Orthopedic Surgery. Repeat labs. Further recommendations to follow. Final cultures are pending at this time. MMODL / IJN: [id number] /
[2020-12-03] MEDS: ALPRAZolam 1 MG TAB PO SCH (21:07)
[2020-12-03] MEDS: ENOXAPARIN 40 MG/0.4 ML SYRINGE SQ SCH (21:08)
[2020-12-03] MEDS: HYDROmorphone 0.5 MG/0.5 ML SYRINGE IVP PRN (21:08)
[2020-12-03] MEDS: SODIUM CHLORIDE 0.9% 1,000 ML IV SCH (22:09)
--- NOTE | 2020-12-03 23:58 | PN ---
PROGRESS NOTE DATE OF SERVICE: 12/03/2020 REASON FOR FOLLOWUP: Right knee septic arthritis. INTERVAL HISTORY: Patient is currently afebrile. The patient is breathing comfortably. The patient denies having any chest pain. No shortness of breath or cough. No nausea, vomiting. No abdominal pain, diarrhea. Pain to the right knee is currently controlled. PHYSICAL EXAMINATION: Blood pressure 126/85, pulse of 56, temp is 97.8. He is 97% on room air. General description: The patient is an elderly male lying in in no distress. Respiratory system: Unlabored breathing, clear to auscultation anteriorly. Heart S1, S2. Regular rate and rhythm. ABDOMEN: Soft, no tenderness. Right knee is currently dressed. No obvious drainage on the dressing. LABS: Creatinine 0.61. DIAGNOSTIC IMPRESSION AND PLAN: Patient with right knee septic arthritis and bursitis status post bursectomy and knee washout. Culture positive for MSSA. The patient is covered with cefazolin 2 grams q.8 to continue waiting for an outpatient antibiotic arrangement and close outpatient followup. MMODL / IJN: [id number] /
[2020-12-04 06:41] LABS: Basophils % (A) 1 %; Eosinophils # (A) 0.4 k/uL (0-0.7); Eosinophils % (A) 7 %; HCT 37.5 % (39.0-53.0); HGB 12.2 gm/dL (13.0-17.5); Lymphocytes # (A) 1.4 k/uL (1.0-4.8); Lymphocytes % (A) 25 %; MCH 30.8 pg (25.0-35.0); MCHC 32.4 g/dL (31.0-37.0); MCV 95.1 fL (80.0-100.0); Mean Platelet Volume 7.5; Monocytes # (A) 0.4 k/uL (0-1.0); Monocytes % (A) 8 %; Neutrophils # (A) 3.3 k/uL (1.3-7.7); Neutrophils % (A) 58 %; Platelet Count 259 k/uL (150-450); RBC 3.95 m/uL (4.30-5.90); RDW 12.1 % (11.5-15.5); WBC 5.7 k/uL (3.8-10.6)
[2020-12-04] MEDS: ASPIRIN 325 MG TAB PO SCH ×2 (08:42→21:34)
[2020-12-04] MEDS: NAPROXEN 250 MG TAB PO SCH ×3 (08:42→21:35)
[2020-12-04] MEDS: FAMOTIDINE 20 MG TAB PO SCH ×2 (08:42→21:34)
[2020-12-04] MEDS: PROPRANOLOL LA 60 MG CAP.SA.24H PO SCH ×2 (08:43→21:34)
[2020-12-04 09:59] LABS: African American GFR (CKD) 121.4 (60.0-200.0); Anion Gap 6.3 mmol/L (4.00-12.00); Calcium 8.5 mg/dL (8.7-10.3); Carbon Dioxide 28.7 mmol/L (21.6-31.8); Non-African American GFR(CKD) 104.8 (60.0-200.0); Potassium 4.5 mmol/L (3.5-5.5)
[2020-12-04] MEDS: DOCUSATE 100 MG CAP PO PRN (10:51)
[2020-12-04] MEDS: LACTATED RINGERS 1,000 ML IV SCH (13:43)
--- NOTE | 2020-12-04 13:56 | PN ---
PROGRESS NOTE DATE OF SERVICE: 12/04/2020. This 65-year-old gentleman was admitted with acute right septic arthritis, had arthroscopy and drainage of septic arthritis. The cultures are pending at this time. No chest pain. No palpitations. No fever. PHYSICAL EXAMINATION: Alert and oriented x3. Pulse 57. Blood pressure 152/88, respiration 18, temperature 97.9, pulse ox 94% on room air. HEENT: Conjunctivae normal. NECK: No JVD. CARDIOVASCULAR: S1, S2 muffled. RESPIRATORY: Breath sounds diminished in the bases. No rhonchi. No crackles. ABDOMEN: Soft, nontender. LEGS: No edema. No swelling. NERVOUS SYSTEM: No focal deficits. LABS: WBC 5.6, hemoglobin 12.2, calcium is 8.5. ASSESSMENT: 1. Acute right septic arthritis status post arthroscopy of the right knee with irrigation and drainage of septic arthritis of the right knee. 2. Status post incision and drainage of the prepatellar bursa of the right knee. 3. Gastroesophageal reflux disease. 4. Hypertension. 5. Peripheral neuropathy. 6. Familial tremors. 7. Hypertension. 8. FULL CODE. RECOMMENDATIONS AND DISCUSSION: Recommend to continue current medical management and symptomatic treatment. Otherwise, at this time I recommend await for the final cultures. Closely follow with Infectious Disease and Orthopedic surgery. Possible PICC line and outpatient IV antibiotic management per Infectious Disease. Further recommendations to follow. MMODL / IJN: [id number] /
--- NOTE | 2020-12-04 19:05 | PN ---
PROGRESS NOTE DATE OF SERVICE: 12/04/2020 REASON FOR FOLLOWUP: Right knee septic arthritis and MSSA. INTERVAL HISTORY: The patient is currently afebrile. Patient is breathing comfortably. Overall pain and discomfort in the right knee has decreased. The patient denies any chest pain or shortness of breath or cough. No abdominal pain, no diarrhea. PHYSICAL EXAMINATION: VITAL SIGNS: Blood pressure 152/88 with a pulse of 57, temperature 97.9. He is 95% on room air. GENERAL DESCRIPTION: An elderly male lying in bed in no distress. RESPIRATORY SYSTEM: Unlabored breathing, clear to auscultation anteriorly. HEART: S1, S2. Regular rate and rhythm. ABDOMEN: Soft, no tenderness. EXTREMITIES: Right knee is currently dressed up with no obvious drainage on the dressing. LABS: Hemoglobin is 12.1, white count of 5.7, BUN of 15, creatinine 0.6. Right knee cultures currently pending. DIAGNOSTIC IMPRESSION AND PLAN: Patient with right knee septic arthritis, status post right knee washout and bursectomy. Cultures pending. Previous culture positive for MSSA. Continue cefazolin 2 grams q8h. He will need IV antibiotic on discharge. Continue supportive care. MMODL / IJN: [id number] /
[2020-12-04] MEDS: ALPRAZolam 1 MG TAB PO SCH (21:34)
[2020-12-04] MEDS: ENOXAPARIN 40 MG/0.4 ML SYRINGE SQ SCH (21:36)
[2020-12-04] MEDS: HYDROcodone/APAP 7.5-325MG 1 EACH TAB PO PRN (23:07)
[2020-12-05] MEDS: FAMOTIDINE 20 MG TAB PO SCH ×2 (08:54→21:59)
[2020-12-05] MEDS: NAPROXEN 250 MG TAB PO SCH ×3 (08:54→21:57)
[2020-12-05] MEDS: PROPRANOLOL LA 60 MG CAP.SA.24H PO SCH ×2 (08:55→21:58)
[2020-12-05] MEDS: ASPIRIN 325 MG TAB PO SCH ×2 (08:55→21:58)
--- NOTE | 2020-12-05 11:49 | P.PN ---
Subjective Progress Note Date: 12/05/20 Principal diagnosis: Septic arthritis right knee. Septic prepatellar bursitis right knee. Medial meniscal tear right knee. This is a 65-year-old male who is postop day #3 status post arthroscopic irrigation and debridement of the right knee with partial medial meniscectomy as well as I&D of the prepatellar bursa right knee. There was very little evidence of infection found intraoperatively. Cultures were taken intraoperatively. The patient is doing well today. He has no new complaints or concerns today. Vital signs and labs are stable. Operative Cultures are final showing no growth. Gram stain shows no organisms seen. Objective - Vital Signs Vital signs: Vital Signs Temp 97.5 F L 12/05/20 04:34 Pulse 57 L 12/05/20 04:34 Resp 14 12/05/20 04:34 BP 128/74 12/05/20 04:34 Pulse Ox 97 12/05/20 04:34 Intake & Output 12/04/20 12/05/20 12/05/20 18:59 06:59 18:59 Intake Total 50 Balance 50 Intake: Intake, IV Titration 50 Amount ceFAZolin 2 gm In Sodium 50 Chloride 0.9% 50 ml @ 100 mls/hr IVPB Q8HR [facility] Rx# :[id number] Other: Voiding Method Urinal - Exam Exam of the right knee reveals that his incisions look good. There is no erythema and no active drainage. There is minimal drainage on the dressings. Mild soft tissue swelling about the knee and lower leg. He has active straight leg raise and flexion to about 90 actively. He has full foot and ankle motion without difficulty or pain. Neurovascular status to the lower extremities intact. - Labs CBC & Chem 7: 12/04/20 05:40 12/04/20 05:40 Labs: Microbiology - Last 24 Hours (Table) 12/02/20 15:20 Anaerobic Culture - Preliminary Knee - Right 12/02/20 15:20 Anaerobic Culture - Preliminary Knee - Right 12/02/20 15:20 Gram Stain - Final Knee - Right Wound Culture - Final 12/02/20 15:20 Gram Stain - Final Knee - Right Wound Culture - Final 11/29/20 10:36 Blood Culture - Preliminary Blood No Growth after 120 hours Assessment and Plan (1) Patellar bursitis of right knee Current Visit: Yes Status: Acute Code(s): M70.51 - OTHER BURSITIS OF KNEE, RIGHT KNEE SNOMED Code(s): 6508580594951985 (2) History of torn meniscus of right knee Current Visit: Yes Status: Acute Code(s): Z87.828 - PERSONAL HISTORY OF OTH (HEALED) PHYSICAL INJURY AND TRAUMA SNOMED Code(s): 248542946 (3) Right knee pain Current Visit: Yes Status: Acute Code(s): M25.561 - PAIN IN RIGHT KNEE SNOMED Code(s): 8960239776 Plan: The clinical findings are discussed with the patient. His dressing is removed today and Band-Aids are placed. He may be discharged from an orthopedic standpoint. Antibiotics per infectious disease. He is to follow-up in our office in 7-10 days.
[2020-12-05 12:32] VITALS: RESP 18
--- NOTE | 2020-12-05 18:21 | PN ---
PROGRESS NOTE DATE OF SERVICE: 12/05/2020 INTERVAL HISTORY: This is a 65-year-old gentleman who was admitted with acute right knee septic arthritis, had surgery. The patient had MSSA grown from the cultures. Orthopedic Surgery and Infectious Disease following the patient closely. ID has recommended to continue on the cefazolin and planning IV antibiotics and PICC line on discharge. No chest pain. No palpitations. No fever. PHYSICAL EXAMINATION: GENERAL: Patient is alert and oriented times three. VITAL SIGNS: Pulse 52, blood pressure 149/80, respirations 18, temperature 98.3, pulse ox 97% on room air. HEENT: Conjunctivae normal. NECK: No jugular venous distention. No carotid bruits. RESPIRATORY: Breath sounds diminished at the bases. No rhonchi, no crackles. HEART: S1 and S2, muffled. ABDOMEN: Soft, no tenderness. No masses palpable. EXTREMITIES: Status post right knee arthroplasty. NERVOUS: No focal deficits. LAB STUDIES: WBC normal, hemoglobin 12.2. ASSESSMENT: 1. Acute right knee septic arthritis status post arthroscopy of right knee with irrigation and drainage of septic arthritis right knee. 2. Status post incision and drainage of the prepatellar bursa of the right knee. 3. Gastroesophageal reflux disease. 4. Hypertension. 5. Peripheral neuropathy. 6. Familial tremors. 7. Hypertension. 8. FULL CODE. RECOMMENDATION AND DISCUSSION: Continue antibiotics. Continue symptomatic treatment. Otherwise at this time I recommend a PICC line and outpatient antibiotics. Guarded prognosis. Further recommendations to follow. MMODL / IJN: [id number] /
--- NOTE | 2020-12-05 20:33 | PN ---
PROGRESS NOTE DATE OF SERVICE: 12/05/2020 REASON FOR FOLLOWUP: Right knee septic arthritis. INTERVAL HISTORY: Patient is currently afebrile. The patient is breathing comfortably. The patient denies any chest pain. No shortness of breath, no cough, no abdominal pain or worsening pain to the right knee. PHYSICAL EXAMINATION: Blood pressure 149/93 with a pulse of 52, temperature 98.3. He is 97% on room air. General description: The patient is an elderly male lying in in no distress. Respiratory system: Unlabored breathing, clear to auscultation anteriorly. Heart S1, S2. Regular rate and rhythm. Abdomen soft, no tenderness. Right knee swelling and redness has decreased. No drainage. LABS: Hemoglobin is 12.1, white count 5.7. BUN of 15, creatinine 0.6. DIAGNOSTIC IMPRESSION AND PLAN: Patient with right knee septic arthritis status post right knee washout and cultures currently pending. Previous culture positive for MSSA. Patient on cefazolin to continue for a total of 4 weeks of treatment for which a PICC line will be placed and close outpatient followup. MMODL / IJN: [id number] /
[2020-12-05] MEDS: DOCUSATE 100 MG CAP PO PRN (21:58)
[2020-12-05] MEDS: ALPRAZolam 1 MG TAB PO SCH (21:59)
[2020-12-05] MEDS: ENOXAPARIN 40 MG/0.4 ML SYRINGE SQ SCH (21:59)
[2020-12-06] MEDS: NAPROXEN 250 MG TAB PO SCH ×2 (08:49→16:45)
[2020-12-06] MEDS: ASPIRIN 325 MG TAB PO SCH (08:49)
[2020-12-06] MEDS: PROPRANOLOL LA 60 MG CAP.SA.24H PO SCH (08:51)
[2020-12-06] MEDS: FAMOTIDINE 20 MG TAB PO SCH (08:52)
[2020-12-06 11:34] LABS: Prothrombin Time 10.4 sec (9.0-12.0)
--- NOTE | 2020-12-06 11:52 | P.PN ---
Subjective Progress Note Date: 12/06/20 This is a 65-year-old male who is postop day #4 status post arthroscopic irrigation and debridement of the right knee with partial medial meniscectomy as well as I&D of the prepatellar bursa right knee. Patient is seen and evaluated at bedside today. Patient states that his pain is well-controlled and he is able to bear full weight on the right leg. Patient denies any new complaints today. Objective - Vital Signs Vital signs: Vital Signs Temp 97.3 F L 12/06/20 05:00 Pulse 50 L 12/06/20 08:00 Resp 18 12/06/20 08:00 BP 142/82 12/06/20 05:00 Pulse Ox 98 12/06/20 05:00 Intake & Output 12/05/20 12/06/20 12/06/20 18:59 06:59 18:59 Intake Total 680 Balance 680 Intake: Oral 680 Other: Voiding Method Urinal Urinal # Voids 4 # Bowel Movements 1 - Exam On exam patient is resting comfortably in bed no acute distress. Patient is alert and oriented 3. Patient has full range of motion of the right knee. Incisions are clean, dry and intact. Calf is soft and nontender to palpation. Minimal swelling of the right lower extremity. Negative Homans. Sensation intact. Neurovascular status and circulatory status are intact. - Labs CBC & Chem 7: 12/04/20 05:40 12/04/20 05:40 Labs: Microbiology - Last 24 Hours (Table) 11/29/20 10:36 Blood Culture - Final Blood No Growth after 144 hours Assessment and Plan (1) Right knee pain Current Visit: Yes Status: Acute Code(s): M25.561 - PAIN IN RIGHT KNEE SNOMED Code(s): 3836270435 (2) Knee effusion Current Visit: Yes Status: Acute Code(s): M25.469 - EFFUSION, UNSPECIFIED KNEE SNOMED Code(s): 304747724 (3) Septic arthritis Current Visit: Yes Status: Acute Code(s): M00.9 - PYOGENIC ARTHRITIS, UNSPECIFIED SNOMED Code(s): 997560051 Plan: 1. Preliminary cultures are negative. Patient is scheduled for a PICC line later today. 2. Weightbearing as tolerated to the right lower extremity. 3. IV antibiotics per infectious disease. 4. Anticoagulation with aspirin. 5. Daily dressing changes. Rest, ice and elevate the right lower extremity. 6. Patient is stable for discharge from an orthopedic standpoint once discharge antibiotics are determined by infectious disease.
[2020-12-06 12:07] VITALS: BP 140/82; PULSE 55; TEMP 98
[2020-12-06] MEDS ORDERED: LIDOCAINE 1% INJ 10MG/ML (10 ML MDV) SQ ONE (14:05)
--- NOTE | 2020-12-06 14:55 | IR ---
EXAMINATION TYPE: IR cvc insert >=5 years DATE OF EXAM: 12/06/2020 COMPARISON: NONE CLINICAL HISTORY: Infection Needs long-term intravenous access for antibiotics. PROCEDURE: Hand hygiene obtained with soap and water and alcohol-based hand rub. After informed consent, the skin overlying the left basilic vein was localized with ultrasound and no viktoriya to be compressible and patent. An ultrasound image was obtained and submitted on the patient's c spencer. The overlying skin was prepped and draped and Lidocaine was used for local anesthesia. A skin oscar was made with a scalpel. Access was gained to the vein under ultrasound guidance with a 21 gau ge needle and a 0.018 inch wire was advanced. Access site was dilated with Peel-Away sheath and cath eter tailored to the appropriate length and advanced such that the distal tip is at the cavoatrial ju nction. Spot image was obtained verifying placement. Catheter was fixed to the skin and a sterile d ressing was placed following hemostasis. Catheter was aspirated and flushed with saline. Patient wa s discharged in stable condition without complication.Maximal barrier technique is utilized. Ultraso und image is documented on the chart. Ultrasound used with sterile technique. Fluoro time and fluoroscopic images submitted to document procedure: 1 intraoperative C-arm images do cument the procedure, 0.2 minutes fluoroscopy time IMPRESSION: STATUS POST ULTRASOUND AND FLUOROSCOPIC GUIDED PICC LINE PLACEMENT, READY FOR USE. THIS PROCEDURE WAS PERFORMED BY THE UNDERSIGNED.
--- NOTE | 2020-12-07 10:07 | P.DS ---
Providers Date of admission: 12/01/20 14:02 Expected date of discharge: 12/06/20 Attending physician: Dequan Gagnon Consults: 11/29/20 10:31 Consult Physician Routine Consulting Provider: Earl Dyer Consult Reason/Comments: Painful swollen knee Do you want consulting provider notified?: Already Contacted Consult Physician Routine Consulting Provider: Ella Chiu Consult Reason/Comments: R/O septic knee Do you want consulting provider notified?: Yes Primary care physician: Aime Mathias Hospital Course: Final Diagnosis Acute right knee septic arthritis status post arthroscopy of right knee with irrigation and drainage of septic arthritis status post irrigation incision and drainage of the prepatellar bursa of right knee GERD Hypertension peripheral neuropathy familial tremors Full code Discharge disposition Patient is being discharged in a stable condition with guarded prognosis to home. Patient will follow-up with Dr. Aime Mathias upon discharge. Patient will follow-up outpatient with infectious disease along with [facility]. Patient will continue with IV antibiotics in the form of Cefazolin and close follow up with Dr. Chiu. Patient to also follow up with orthopedics, Dr. Dyer in the clinic. Total time taken is greater than 35 minutes. Hospital course This is a 65-year-old male who was recently admitted with acute right knee septic arthritis with recent surgery and was being closely monitored. Multiple medical consultations including orthopedics and infectious disease evaluated the patient recommending outpatient follow-up as discussed. Patient underwent irrigation of the right knee with orthopedics. Patient was also found to have staph aureus of the seminal fluid and was on IV cefazolin and showed clinical improvement and most recent culture repeats have been negative. Patient received a PICC line and will continue with [facility] and home care for IV antibiotic management. Currently no reports of chest pain, shortness of breath, or palpitations. Patient is afebrile. No reports of nausea or vomiting and patient is tolerating diet. Patient will be discharged to home with continued home care. On exam vital signs are stable. Cardio S1, S2 are muffled. Respiratory shows diminished breath sounds at the bases with no wheezing or rhonchi noted. Abdomen is soft and nontender. Nervous system shows no focal deficits. Please refer to medication reconciliation sheet for a list of medications. Patient Condition at Discharge: Stable Plan - Discharge Summary Discharge Rx Participant: No New Discharge Prescriptions: New HYDROcodone/APAP 7.5-325MG [[place] 7.5-325] 1 - 2 tab PO Q6H PRN #32 tab PRN Reason: Pain Aspirin 325 mg PO BID 14 Days #28 tab Sennosides [Senokot] 2 tab PO DAILY PRN #60 tablet PRN Reason: Constipation Naproxen [Naprosyn] 250 mg PO TID tab Continue Propranolol HCl [Propranolol HCl ER] 120 mg PO BID Acetaminophen Tab [Tylenol] 1,000 mg PO Q6H PRN PRN Reason: Pain ALPRAZolam [Xanax] 1 mg PO HS Aspirin 325 mg PO QID PRN PRN Reason: Pain Discharge Medication List ALPRAZolam [Xanax] 1 mg PO HS 11/28/20 [History] Acetaminophen Tab [Tylenol] 1,000 mg PO Q6H PRN 11/28/20 [History] Aspirin 325 mg PO QID PRN 11/28/20 [History] Propranolol HCl [Propranolol HCl ER] 120 mg PO BID 11/28/20 [History] Aspirin 325 mg PO BID 14 Days #28 tab 12/02/20 [Rx] HYDROcodone/APAP 7.5-325MG [[place] 7.5-325] 1 - 2 tab PO Q6H PRN #32 tab 12/02/20 [Rx] Sennosides [Senokot] 2 tab PO DAILY PRN #60 tablet 12/02/20 [Rx] Naproxen [Naprosyn] 250 mg PO TID tab 12/06/20 [Rx] Follow up Appointment(s)/Referral(s): Aime Mathias MD [Primary Care Provider] - 1-2 days [facility], [NON-STAFF] - 1 Week [facility], [REFERRING] - 1 Week Earl Dyer DO [Doctor of Osteopathic Medicine] - 12/12/20 1:00 pm Ella Chiu MD [STAFF PHYSICIAN] - 12/20/20 2:15 pm Patient Instructions/Handouts: Hydrocodone/Acetaminophen (By mouth), Aspirin (By mouth), Senna (By mouth), Septic Arthritis (DC) Activity/Diet/Wound Care/Special Instructions: Discharge antibiotics per infectious disease. May bear weight as tolerated. Sutures to be removed in 7-10 days. Rest, ice and elevate. Please follow up with [facility] and call with any questions or concerns, . Follow-up with Dr. Earl Dyer in 7-10 days. Discharge Disposition: HOME WITH HOME HEALTH SERVICES
--- NOTE | 2020-12-09 17:20 | P.PN ---
Progress Note - Text Progress Note Date: 12/06/20 REASON FOR FOLLOWUP: Right knee septic arthritis. INTERVAL HISTORY: Patient is afebrile. The patient is breathing comfortably. The patient denies any chest pain shortness of breath or cough, the patient denies abdominal pain or pain to the right knee is currently controlled. PHYSICAL EXAMINATION: Blood pressure 140/90 with a pulse of 52, temperature 98.3. He is 97% on room air. General description: The patient is an elderly male lying in in no distress. Respiratory system: Unlabored breathing, clear to auscultation anteriorly. Heart S1, S2. Regular rate and rhythm. Abdomen soft, no tenderness. Right knee swelling and redness has decreased. No drainage. LABS: Reviewed DIAGNOSTIC IMPRESSION AND PLAN: Patient with right knee septic arthritis status post right knee washout and cultures currently pending. Previous culture positive for MSSA. Patient on cefazolin to continue for a total of 4 weeks of treatment with weekly monitoring of CBC, CRP sed rate and follow-up in the office in 1 week
== END 2020-12-06 17:58 | disposition home health service (06) | DRG 486 ==
LOC: EC 09:44 → 5NMEDONC 10:30 → OBSVTOIN 12-01 14:02
PROVIDERS: ADMIT Hospitalist; ATTEND Hospitalist
PROC: 0SBC4ZZ Excision of Right Knee Joint, Percutaneous Endoscopic Approach (ICD-10-PCS; principal; 2020-12-02 07:30)
PROC: 0S9C4ZZ Drainage of Right Knee Joint, Percutaneous Endoscopic Approach (ICD-10-PCS; principal; 2020-12-02 07:30)
PROC: 02HV33Z Insertion of Infusion Device into Superior Vena Cava, Percutaneous Approach (ICD-10-PCS; 2020-12-06)
DX: M00.9 Pyogenic arthritis, unspecified (principal); M25.061 Hemarthrosis, right knee; Z20.822 Contact with and (suspected) exposure to COVID-19; S83.241A Other tear of medial meniscus, current injury, right knee, initial encounter; M94.261 Chondromalacia, right knee; M65.161 Other infective (teno)synovitis, right knee; M71.161 Other infective bursitis, right knee; B95.61 Methicillin susceptible Staphylococcus aureus infection as the cause of diseases classified elsewhere; G62.9 Polyneuropathy, unspecified; G25.0 Essential tremor; I10 Essential (primary) hypertension; K21.9 Gastro-esophageal reflux disease without esophagitis; Z79.82 Long term (current) use of aspirin; Z79.899 Other long term (current) drug therapy; Z88.0 Allergy status to penicillin; Z82.3 Family history of stroke
CPT/HCPCS: 36573; 80048; 80053; 80202; 81001; 82565; 83605; 84145; 85025; 85610; 85730; 87040; 87070; 87075; 87116; 87205; 87206; 87635; 93005; 99285

== ENCOUNTER 2022-10-25 10:57 | Day surgery (SDC) | payer MEDICARE ==
[2022-10-24 08:52] VITALS: BMI 33.0
[~2022-10-25 10:57] MED LIST: DEXAMETHASONE SOD PHOSPHATE 4 MG/ML 1 ML VIAL IV PRN; FAMOTIDINE 20 MG/2 ML VIAL IV PRN; ONDANSETRON 4 MG/2 ML VIAL IVP PRN; metroNIDAZOLE-NS PMX 500 MG in SALINE 1 100ML.BAG IVPB PRN
[2022-10-25] MEDS ORDERED: DEXAMETHASONE SOD PHOSPHATE 4 MG/ML 1 ML VIAL IV ONE (11:12)
[2022-10-25] MEDS ORDERED: HYDROmorphone 0.5 MG/0.5 ML SYRINGE IVP PRN (11:12)
[2022-10-25] MEDS ORDERED: LACTATED RINGERS 1,000 ML IV SCH (11:12)
[2022-10-25] MEDS ORDERED: ONDANSETRON 4 MG/2 ML VIAL IVP ONE (11:12)
[2022-10-25] MEDS ORDERED: fentaNYL (PF) 50 MCG/ML 2 ML AMP ONE (14:04)
[2022-10-25] MEDS ORDERED: PROPOFOL 10 MG/ML 20 ML VIAL IV ONE (14:04)
[2022-10-25] MEDS ORDERED: LIDOCAINE 2% INJ 20 MG/ML (2 ML VIAL) ONE (14:04)
[2022-10-25] MEDS ORDERED: GLYCOPYRROLATE 0.2 MG/ML 2 ML VIAL ONE (14:04)
[2022-10-25] MEDS ORDERED: SUCCINYLCHOLINE CHLORIDE 200 MG/10 ML VIAL IV ONE (14:04)
[2022-10-25] MEDS ORDERED: MIDAZOLAM 2 MG/2 ML VIAL ONE (14:04)
[2022-10-25] MEDS ORDERED: ePHEDrine 50 MG/ML 1 ML VIAL ONE (14:04)
[2022-10-25] MEDS ORDERED: LIDOCAINE 2%-EPI 1:100,000 20 ML VIAL SQ ONE (14:06)
[2022-10-25] MEDS ORDERED: LACTATED RINGERS 1,000 ML IV ONE (14:58)
--- NOTE | 2022-10-25 15:36 | P.OP ---
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 It's protruding and irritating is requesting surgical removal. All risks, benefits and alternative therapies were discussed in detail. Consent was obtained and all questions were answered. Operative Findings: Patient has a deep space neck lipoma 8 x 8 cm Description of Procedure: This patient was taken to the operative room and placed in a supine position. A general inhalation anesthetic was administered to the patient by mask and subsequently intubated with a cuffed endotracheal tube by the department of anesthesia with a functioning IV line in place. Patient was monitored throughout the entire case by the department of anesthesia. The patient was then placed in a prone position in the neck was sterilely prepped and draped in usual fashion. 10 minutes were allowed wait for full vasoconstrictive effects to take place. At this time a horizontal incision was made over this large mass. This was dissected and freed it was located underneath the deep cervical fascia. We isolated all margins of this lipoma and removed with the delicate plastic scissors and a Brown-Shakiraon forceps. It was a deep space lipoma. After removal cauterization was used for hemostasis. The area was irrigated. We closed the deep space with a 3-D P PDS we closed the deep dermal layer with a 4- 0 Monocryl we closed the mid dermal layer with 4-0 Monocryl we closed the skin with a 50 rapid Vicryl in a running nonlocking fashion excellent approximation was obtained we did before we closed we prepped the skin edges we did extensive undermining in all directions and we remove redundant tissue and closed in a complex fashion. Excellent closure was obtained and the patient tolerated this well. Follow-up will be in the office in 2 weeks.
[2022-10-25 15:40] VITALS: TEMP 97.3
[2022-10-25 15:47] VITALS: RESP 16
[2022-10-25 16:56] VITALS: BP 101/56; PULSE 53
== END 2022-10-25 17:15 | disposition home or self-care (01) ==
LOC: OR 10:57
PROVIDERS: ATTEND Otolaryngology
DX: D17.0 Benign lipomatous neoplasm of skin and subcutaneous tissue of head, face and neck (principal); I10 Essential (primary) hypertension; K21.9 Gastro-esophageal reflux disease without esophagitis; Z79.899 Other long term (current) drug therapy; Z87.891 Personal history of nicotine dependence; Z88.2 Allergy status to sulfonamides
CPT/HCPCS: 11420; J2250; J0330; J1100; J0690; J2405; J3010; J2704; J2001; 88304